=== PATIENT | male | born 1990 | race Caucasian/White ===

== ENCOUNTER 2018-08-24 11:48 | Emergency (ER) | payer MEDICAID ==
[~2018-08-24] VITALS: Ht 180.3 cm; Wt 86.1 kg
[2018-08-24 12:03] VITALS: BP 133/74
== END 2018-08-24 13:46 | disposition home or self-care (01) ==
LOC: ER 12:21
DX: K62.5 Hemorrhage of anus and rectum (principal); F17.200 Nicotine dependence, unspecified, uncomplicated
CPT/HCPCS: 99281